=== PATIENT | male | born 1955 | race Caucasian/White ===

== ENCOUNTER → 2019-10-18 | Outpatient (CLI) | payer BC ==
[~2019-10-18] MED LIST: INSU100I13 SQ; INSULIN; LEVO75TA6 PO; LISI10TA2 PO; LVT.05T; OMEP10SU; PANT40TA2 PO; SIMV40TA2 PO; SUCR1TAB36 PO; [UNRECOGNIZED DRUG - REMARK]
--- NOTE | 2019-10-19 11:17 | Diagnostic Imaging Report ---
INDICATION: Abnormal thyroid labs. Patient was administered 203 uCi of I-123 orally and a 4 hour and 24 hour thyroid uptake was performed. In addition, thyroid scan was performed. 4 hour uptake is 4%. 24-hour thyroid uptake is 8.3%. Normal 24-hour uptake is approximately 10-30%. Thyroid scan demonstrates fairly homogeneous uptake of activity throughout both lobes of the thyroid. No hot or cold nodules are identified. IMPRESSION: Slightly low 24 hour thyroid uptake of 8% consistent with hypothyroidism. No other significant abnormality is seen. Dictated by: Dictated on workstation # [id number]
== END ==
LOC: CARD 10:31
PROVIDERS: ATTEND Nurse Practitioner Family
DX: R94.6 Abnormal results of thyroid function studies (principal)
CPT/HCPCS: 78014

== ENCOUNTER → 2021-08-01 | Outpatient (CLI) | payer BC ==
[~2021-08-01] MED LIST changes: -LISI10TA2 PO; +LISI10TA25 PO
--- NOTE | 2021-08-01 17:31 | Diagnostic Imaging Report ---
INDICATION: Pain. 3 views were obtained. FINDINGS: The alignment is normal. No fracture or dislocation. Soft tissues are unremarkable. IMPRESSION: Mild degenerative changes, however no acute fracture or dislocation. Dictated by: Dictated on workstation # [id number]
== END ==
LOC: RAD 16:08
PROVIDERS: ATTEND Physician Assistant
DX: E11.621 Type 2 diabetes mellitus with foot ulcer (principal); L97.519 Non-pressure chronic ulcer of other part of right foot with unspecified severity; M79.674 Pain in right toe(s); B35.1 Tinea unguium; E03.9 Hypothyroidism, unspecified; E78.00 Pure hypercholesterolemia, unspecified; M19.071 Primary osteoarthritis, right ankle and foot; Z86.14 Personal history of Methicillin resistant Staphylococcus aureus infection
CPT/HCPCS: 73630

== ENCOUNTER → 2021-08-06 | Outpatient (CLI) | payer BC | LOC: WOUNDCARE 15:11 | PROVIDERS: ATTEND Surgery | DX: E11.621 Type 2 diabetes mellitus with foot ulcer (principal); E11.42 Type 2 diabetes mellitus with diabetic polyneuropathy; L97.512 Non-pressure chronic ulcer of other part of right foot with fat layer exposed; I70.235 Atherosclerosis of native arteries of right leg with ulceration of other part of foot | CPT/HCPCS: 11042; A6197; G0463 ==

== ENCOUNTER → 2021-08-15 | Outpatient (CLI) | payer BC | LOC: WOUNDCARE 15:12 | PROVIDERS: ATTEND Surgery | DX: E11.621 Type 2 diabetes mellitus with foot ulcer (principal); E11.42 Type 2 diabetes mellitus with diabetic polyneuropathy; E11.52 Type 2 diabetes mellitus with diabetic peripheral angiopathy with gangrene; L97.512 Non-pressure chronic ulcer of other part of right foot with fat layer exposed | CPT/HCPCS: 99212 ==

== ENCOUNTER → 2021-08-22 | Outpatient (CLI) | payer BC | LOC: WOUNDCARE 15:12 | PROVIDERS: ATTEND Family Medicine | DX: E11.621 Type 2 diabetes mellitus with foot ulcer (principal); E11.42 Type 2 diabetes mellitus with diabetic polyneuropathy; L97.512 Non-pressure chronic ulcer of other part of right foot with fat layer exposed; E11.52 Type 2 diabetes mellitus with diabetic peripheral angiopathy with gangrene | CPT/HCPCS: 11042; A6197; G0463 ==

== ENCOUNTER → 2021-08-22 | Outpatient (CLI) | payer BC | LOC: LAB 15:41 | PROVIDERS: ATTEND Family Medicine | DX: E11.621 Type 2 diabetes mellitus with foot ulcer (principal); E11.42 Type 2 diabetes mellitus with diabetic polyneuropathy; L97.512 Non-pressure chronic ulcer of other part of right foot with fat layer exposed | CPT/HCPCS: 36415; 83036 ==

== ENCOUNTER → 2021-08-29 | Outpatient (CLI) | payer BC | LOC: WOUNDCARE 15:10 | PROVIDERS: ATTEND Family Medicine | DX: E11.52 Type 2 diabetes mellitus with diabetic peripheral angiopathy with gangrene (principal); E11.621 Type 2 diabetes mellitus with foot ulcer; E11.42 Type 2 diabetes mellitus with diabetic polyneuropathy; I96 Gangrene, not elsewhere classified; L97.512 Non-pressure chronic ulcer of other part of right foot with fat layer exposed | CPT/HCPCS: 11042; G0463 ==

== ENCOUNTER → 2021-09-05 | Outpatient (CLI) | payer BC | LOC: WOUNDCARE 15:10 | PROVIDERS: ATTEND Family Medicine | DX: E11.621 Type 2 diabetes mellitus with foot ulcer (principal); E11.42 Type 2 diabetes mellitus with diabetic polyneuropathy; L97.512 Non-pressure chronic ulcer of other part of right foot with fat layer exposed; E11.65 Type 2 diabetes mellitus with hyperglycemia; E11.52 Type 2 diabetes mellitus with diabetic peripheral angiopathy with gangrene | CPT/HCPCS: 11042; A6207; G0463 ==

== ENCOUNTER → 2021-09-12 | Outpatient (CLI) | payer BC | LOC: WOUNDCARE 15:10 | PROVIDERS: ATTEND Family Medicine | DX: E11.621 Type 2 diabetes mellitus with foot ulcer (principal); E11.42 Type 2 diabetes mellitus with diabetic polyneuropathy; L97.512 Non-pressure chronic ulcer of other part of right foot with fat layer exposed; E11.65 Type 2 diabetes mellitus with hyperglycemia; E11.52 Type 2 diabetes mellitus with diabetic peripheral angiopathy with gangrene | CPT/HCPCS: 11042; G0463 ==

== ENCOUNTER → 2021-09-19 | Outpatient (CLI) | payer BC | LOC: WOUNDCARE 15:05 | PROVIDERS: ATTEND Family Medicine | DX: E11.621 Type 2 diabetes mellitus with foot ulcer (principal); E11.52 Type 2 diabetes mellitus with diabetic peripheral angiopathy with gangrene; E11.42 Type 2 diabetes mellitus with diabetic polyneuropathy; L97.512 Non-pressure chronic ulcer of other part of right foot with fat layer exposed; E11.65 Type 2 diabetes mellitus with hyperglycemia | CPT/HCPCS: 11042; G0463 ==

== ENCOUNTER → 2021-09-24 | Outpatient (CLI) | payer BC | LOC: WOUNDCARE 15:05 | PROVIDERS: ATTEND Family Medicine | DX: E11.52 Type 2 diabetes mellitus with diabetic peripheral angiopathy with gangrene (principal); E11.621 Type 2 diabetes mellitus with foot ulcer; E11.42 Type 2 diabetes mellitus with diabetic polyneuropathy; E11.65 Type 2 diabetes mellitus with hyperglycemia; I96 Gangrene, not elsewhere classified; L97.512 Non-pressure chronic ulcer of other part of right foot with fat layer exposed | CPT/HCPCS: 11042; G0463 ==

== ENCOUNTER → 2021-10-03 | Outpatient (CLI) | payer BC | LOC: WOUNDCARE 15:12 | PROVIDERS: ATTEND Family Medicine | DX: E11.621 Type 2 diabetes mellitus with foot ulcer (principal); E11.42 Type 2 diabetes mellitus with diabetic polyneuropathy; L97.512 Non-pressure chronic ulcer of other part of right foot with fat layer exposed; E11.65 Type 2 diabetes mellitus with hyperglycemia | CPT/HCPCS: 11042; G0463 ==

== ENCOUNTER → 2021-10-10 | Outpatient (CLI) | payer BC | LOC: WOUNDCARE 15:10 | PROVIDERS: ATTEND Family Medicine | DX: E11.621 Type 2 diabetes mellitus with foot ulcer (principal); E11.42 Type 2 diabetes mellitus with diabetic polyneuropathy; E11.52 Type 2 diabetes mellitus with diabetic peripheral angiopathy with gangrene; L97.512 Non-pressure chronic ulcer of other part of right foot with fat layer exposed; E11.65 Type 2 diabetes mellitus with hyperglycemia | CPT/HCPCS: 11042; G0463 ==

== ENCOUNTER → 2022-06-27 | Outpatient (CLI) | payer BC ==
[2022-06-27 11:53] LABS: BASOPHILS # (AUTO) 0.1 10^3/uL (0.0-0.1); BASOPHILS % (AUTO) 1 % (0-10); EOSINOPHILS # (AUTO) 0.4 10^3/uL (0.0-0.3); EOSINOPHILS % (AUTO) 6 % (0-10); HEMATOCRIT 37 % (40-54); HEMOGLOBIN 12.3 g/dL (13.3-17.7); LYMPHOCYTES # (AUTO) 0.7 10^3/uL (1.0-4.0); LYMPHOCYTES % (AUTO) 11 % (12-44); MEAN CORPUSCULAR HEMOGLOBIN 28 pg (25-34); MEAN CORPUSCULAR HGB CONC 33 g/dL (32-36); MEAN CORPUSCULAR VOLUME 83 fL (80-99); MEAN PLATELET VOLUME 8.9 fL (9.0-12.2); MONOCYTES # (AUTO) 0.7 10^3/uL (0.0-1.0); MONOCYTES % (AUTO) 11 % (0-12); NEUTROPHILS # (AUTO) 4.4 10^3/uL (1.8-7.8); NEUTROPHILS % (AUTO) 71 % (42-75); PLATELET COUNT 315 10^3/uL (130-400); WHITE BLOOD COUNT 6.2 10^3/uL (4.3-11.0)
[2022-06-27 12:14] LABS: ERYTHROCYTE SEDIMENTATION RATE 41 MM/HR (0-30)
[2022-06-27 12:19] LABS: ALBUMIN 3.7 GM/DL (3.2-4.5); BILIRUBIN,TOTAL 0.8 MG/DL (0.1-1.0); CALCIUM 9.4 MG/DL (8.5-10.1); CREATININE SERUM 0.9 MG/DL (0.60-1.30); TOTAL PROTEIN 6.6 GM/DL (6.4-8.2)
== END ==
LOC: WOUNDCARE 09:34
PROVIDERS: ATTEND Family Medicine
DX: L97.512 Non-pressure chronic ulcer of other part of right foot with fat layer exposed (principal); E11.621 Type 2 diabetes mellitus with foot ulcer; E11.649 Type 2 diabetes mellitus with hypoglycemia without coma; E11.40 Type 2 diabetes mellitus with diabetic neuropathy, unspecified; L03.031 Cellulitis of right toe; Z91.19 Patient's noncompliance with other medical treatment and regimen
CPT/HCPCS: 80053; 82947; 85025; 85652; 86141; A6197; G0463; 36415; 99214

== ENCOUNTER → 2022-06-30 | Outpatient (CLI) | payer BC ==
[~2022-06-30] MED LIST changes: +GADOTERATE 0.5 MMOL/ML (CLARISCAN) 15 ML VIAL IV ONE
--- NOTE | 2022-06-30 22:07 | Diagnostic Imaging Report ---
Exam: MRI right foot without and with intravenous contrast. Date: June 30, 2022. Indication: 66-year-old male, concern for osteomyelitis of the right great toe. Great toe pain. Comparison: Right foot radiographs August 01, 2021. Technique: Multiple pre and postcontrast MRI sequences of the right foot were obtained. Findings: There is diffuse loss of normal T1 marrow signal throughout the first distal phalanx as well as marrow edema and enhancement consistent with osteomyelitis. There is a distal skin defect at the level of the first digit consistent with a soft tissue ulcer. There is generalized subcutaneous edema and enhancement of the first digit without identified focal fluid collection or abscess. There is no evidence of osteomyelitis of the first proximal phalanx. There is no first interphalangeal joint effusion to specifically suggest septic arthritis. There is no additional identified site of osteomyelitis. There is a bipartite lateral sesamoid. Impression: 1. Osteomyelitis involving the entire first distal phalanx. 2. No joint effusion of the first interphalangeal joint to specifically suggest septic arthritis. 3. No evidence of osteomyelitis of the first proximal phalanx. 4. Generalized subcutaneous edema and enhancement without identified focal fluid collection or abscess. Dictated by: Dictated on workstation # [id number]
== END ==
LOC: RAD 17:00
PROVIDERS: ATTEND Family Medicine
DX: L97.512 Non-pressure chronic ulcer of other part of right foot with fat layer exposed (principal); E11.621 Type 2 diabetes mellitus with foot ulcer; E11.649 Type 2 diabetes mellitus with hypoglycemia without coma; E11.40 Type 2 diabetes mellitus with diabetic neuropathy, unspecified; L03.031 Cellulitis of right toe; Z91.19 Patient's noncompliance with other medical treatment and regimen; M86.8X7 Other osteomyelitis, ankle and foot
CPT/HCPCS: 73720

== ENCOUNTER 2022-07-10 05:40 | Outpatient (CLI) | payer BC ==
[~2022-07-10] VITALS: Ht 182.9 cm; Wt 75.0 kg
[~2022-07-10 05:40] MED LIST changes: -GADOTERATE 0.5 MMOL/ML (CLARISCAN) 15 ML VIAL IV ONE
[2022-07-10] MEDS ORDERED: PANT40TA52 PO (13:36)
[2022-07-10] MEDS ORDERED: CITA20TA9 PO (13:36)
== END 2022-07-10 15:18 | disposition home or self-care (01) ==
LOC: PREOP 05:40
PROVIDERS: ATTEND Podiatrist Foot & Ankle Surgery
DX: Z01.818 Encounter for other preprocedural examination (principal)

== ENCOUNTER 2022-07-14 05:59 | Day surgery (SDC) | payer BC ==
[2022-07-14] VITALS (11 sets, daily range): BP systolic 121–160; BP diastolic 67–90
[~2022-07-14] VITALS: Ht 182.9 cm; Wt 75.0 kg
[~2022-07-14 05:59] MED LIST changes: +CITA20TA9 PO; +PANT40TA52 PO
[2022-07-14] MEDS: LACTATED RINGERS 1,000 ML IV PRN ×2 (06:21→09:04)
[2022-07-14] MEDS ORDERED: ceFAZolin INJECTION 1,000 MG VIAL IV ONE (06:30)
[2022-07-14] MEDS ORDERED: LIDOCAINE 1% INJ 10 ML VIAL ONE (07:04)
[2022-07-14] MEDS ORDERED: BUPIVACAINE 0.5% 30 ML (SENSORCAINE) VIAL ONE (07:05)
--- NOTE | 2022-07-14 07:49 | Progress Note-Pre Operative ---
Pre-Operative Progress Note Date of Available H&P: Jul 14, 2022 Date H&P Reviewed: Jul 14, 2022 Time H&P Reviewed: 07:40 Pre-Operative Diagnosis: Osteomyelitis, right hallux MADISON NOLASCO DPQueta Jul 14, 2022 07:49
[2022-07-14] MEDS ORDERED: MIDAZOLAM 2 MG/2 ML (VERSED) VIAL ONE (07:57)
[2022-07-14] MEDS ORDERED: LIDOCAINE 1% INJ 10 ML VIAL INJ ONE (08:18)
[2022-07-14] MEDS ORDERED: BUPIVACAINE 0.5% 30 ML (SENSORCAINE) VIAL INJ ONE (08:22)
[2022-07-14] MEDS ORDERED: SEVOFLURANE (ULTANE) 15 ML INHAL SOLN ONE (08:42)
[2022-07-14] MEDS ORDERED: ONDANSETRON 4 MG/2 ML (SDV) Z0FRAN ONE (08:42)
[2022-07-14] MEDS ORDERED: PROPOFOL INJECTION 50 ML IV ONE (08:42)
--- NOTE | 2022-07-14 08:55 | Anesthesia-General Post-Op ---
General Patient Condition Mental Status/LOC: Same as Preop Cardiovascular: Satisfactory Nausea/Vomiting: Absent Respiratory: Satisfactory Pain: Controlled Complications: Absent Post Op Complications Complications None Follow Up Care/Instructions Patient Instructions None needed. Anesthesia/Patient Condition Patient Condition Patient is doing well, no complaints, stable vital signs, no apparent adverse anesthesia problems. No complications reported per nursing. SUJATA LUNA CRNA Jul 14, 2022 08:55
--- NOTE | 2022-07-14 08:56 | Progress Note-Post Operative ---
Post-Operative Progess Note Surgeon (s)/Car Worker (s) Surgeon MADISON NOLASCO DPM Car Worker: none Pre-Operative Diagnosis Osteomyelitis, right hallux Post-Operative Diagnosis Same Procedure & Operative Findings Date of Procedure 07/14/22 Procedure Performed/Findings Amputation of the right hallux distal phalanx and a portion of the proximal phalanx Anesthesia Type General Estimated Blood Loss Estimated blood loss (mL): Minimal Specimens/Packing Specimens Removed Right hallux distal phalanx and the head of the proximal phalanx MADISON NOLASCO DPM Jul 14, 2022 08:56
[2022-07-14] MEDS ORDERED: ACHD5005 PO (08:58)
[2022-07-14] MEDS ORDERED: CEPH500C PO (08:58)
[2022-07-14] MEDS ORDERED: HYDROcodone/APAP 5 MG/325 MG (LORTAB) TAB PO PRN (09:00)
[2022-07-14] MEDS ORDERED: ONDANSETRON 4 MG/2 ML (SDV) Z0FRAN IVP PRN (09:00)
[2022-07-14] MEDS ORDERED: fentaNYL INJ 100 MCG/2 ML AMP IVP ONE (09:00)
[2022-07-14] MEDS ORDERED: LACTATED RINGERS 1,000 ML IV SCH (09:00)
--- NOTE | 2022-07-14 10:34 | Physical Therapy Ortho Eval ---
PT Orthopedic Evaluation Type of Surgery Right great toe amputation secondary to bone infection. Prior Level of Function Current Living Status: Alone Locomotion (Upon Admit): Independent Established Durable Medical Eq: Front Wheeled Walker Pt's mother has a FWW that he can use until he is recovered. Subjective Subjective Pt reports no mobility issues. He has no pain in the foot due to neuropathy. Entry Into Home: Stairs With Railing Steps Into Home: 3 Steps Accessories: Railing Present Motor Control Motor Control: Motor Control WNL ROM ROM: WFL Strength Strength: WFL Transfer SCALE: Activities may be completed with or without assistive devices. 1-Kcxxexlcmo-uxtfbec completes the activity by him/herself with no assistance from a helper. 5-Set-up or Clean-up Assistance-helper sets up or cleans up; patient completes activity. [place] assists only prior to or following the activity. 4-Supervision or Touching Assistance-helper provides verbal cues and/or touching/steadying and/or contact guard assistance as patient completes activity. Assistance may be provided throughout the activity or intermittently. 3-Partial/Moderate Assistance-helper does LESS THAN HALF the effort. [place] lifts, holds or supports trunk or limbs, but provides less than half the effort. 2-Substantial/Maximal Assistance-helper does MORE THAN HALF the effort. [place] lifts or holds trunk or limbs and provides more than half the effort. 2-Ykswoctru-kbkfxg does ALL the effort. Patient does none of the effort to complete the activity. Or, the assistance of 2 or more helpers is required for the patient to complete the activity. If activity was not attempted, code reason: 7-Patient Refused. 9-Not Applicable-not attempted and the patient did not perform the activity before the current illness, exacerbation or injury. 10-Not Attempted due to Environmental Limitations-(lack of equipment, weather restraints, etc.). 88-Not Attempted due to Medical Conditions or Safety Concerns. Transfers (B, C, W/C) (QC): 6 Pt able to get in/out of bed independently. Sit to stand without assist. Gait Gait Assistive Device: FWW Ambulate 150ft with FWW, verbal cues for training on use. Right Lower Extremity: Right Weight Bearing Status RLE: Partial Weight Bearing Left Lower Extremity: Left Weight Bearing Status LLE: Full Weight Bearing Distance (QC): 3=150 ft Distance: 150 Gait Level of Assist: 6 Summary/Comments Pt ambulated with no assistance. He was steady with (L) and (R) turns. He required occasional reminders to be partial wt bearing on the right foot. Treatment Rendered Instructed on home exercise of ankle pumps for mobility and reduced risk of DVT post surgery. Assessment/Goals Goal Time Frame: 1 Visit Understands HEP: Yes Safe Ambulation: Yes Plan Treatment Plan: Discharge Treatment Duration: 1 Visits Per Week: 1 PT/Family Agrees to Plan: Yes Time Time In: 1015 Time Out: 1035 Total Billed Treatment Time: 20 Billed Treatment Time visit, tono low complexity 20min No ASHWIN GRIFFIN PT Jul 14, 2022 10:34
--- NOTE | 2022-07-14 12:02 | OPERATIVE REPORT ---
DATE OF SERVICE: 07/14/2022 SURGEON: Charlene Nolasco DPM. PREOPERATIVE DIAGNOSIS: Osteomyelitis, right hallux. POSTOPERATIVE DIAGNOSIS: Osteomyelitis, right hallux. PROCEDURE: Partial amputation of the right hallux including distal phalanx and head of the proximal phalanx. WOUND CLASS: Contaminated. ANESTHESIA: General. HEMOSTASIS: Pneumatic ankle tourniquet at 250 mmHg. INDICATIONS: This 66-year-old male presents complaining of a chronic wound to the right hallux. Conservative therapy is met with unsatisfactory results and the patient is agreeable to surgical intervention after risks and complications were discussed at length. No guarantees were extended to the patient and he is willing to proceed. DESCRIPTION OF PROCEDURE: The patient was brought back to the operating table, placed in secure supine position. The patient had an appropriate timeout, after which local anesthetic was then introduced to the right foot in a Berrios block utilizing 20 mL of 1:1 mixture of 1% Xylocaine, 0.5% Marcaine. Because the patient continued to move throughout the procedure and prep time, a general anesthetic was then induced in the middle of the procedure. The right foot was prepped and draped in normal sterile manner. The right foot was then elevated, allowed to exsanguinate after which the tourniquet was inflated to 250 mmHg. Attention was then directed to the right hallux where a racquet-type incision was created with the handle or tail of the racquet medial to the proximal phalanx extending distally and then superiorly along the interphalangeal joint area of the hallux. A long plantar flap was also created as far as the incision is concerned to facilitate potential closure. A sharp dissection was carried out disarticulating the distal phalanx from the proximal phalanx at the interphalangeal joint. The distal interphalangeal joint was sent for gross and microscopic evaluation after a sample of the bone underlying the chronic wound area was taken to have cultures and sensitivities performed. Below the interphalangeal joint was an accessory ossicle associated with the flexor hallucis longus tendon. It had a dark brower discoloration and was very soft, consistent with osteomyelitis. Because of the proximity of this to the head of the proximal phalanx, the head of the proximal phalanx was also taken with a power sagittal saw to confirm a buffer area of clean bone. The rest of the soft tissue and bone appeared to be within normal limits grossly. A 1000 mL of normal saline was utilized for power irrigation. After irrigation, the wound was swabbed to confirm aseptic closure. Skin was approximated utilizing simple interrupted type stitch with a 4-0 Prolene. Excellent skin approximation was appreciated without any significant skin tension. The tourniquet was released noting appropriate cap refill time, especially to the dorsal aspect of the right hallux. The plantar aspect, it did take a little bit longer for the capillary refill time to return to its normal three seconds or less capillary refill time. Postoperative dressing consisted of Betadine soaked Adaptic, sterile 4 x 4, sterile Kerlix all secured with a Coban wrap. The patient tolerated the anesthesia and procedure well, was transported from the operating room to the recovery room with vital signs stable. He was given a prescription for Keflex as well as hydrocodone postoperatively. He is to be partial weightbearing with minimal weightbearing to the right forefoot. We will see him back in the office in 10 days' period of time or sooner if necessary. Job ID: [id number] DocumentID: [id number] Dictated Date: 07/14/2022 09:06:34 Day Guard Date: 07/14/2022 12:02:12 Dictated By: CHARLENE NOLASCO DPM
--- NOTE | 2022-07-14 17:10 | Diagnostic Imaging Report ---
CLINICAL HISTORY: Postop. Follow-up. COMPARISON: 08/01/2021. TECHNIQUE: 2 views of the right foot. FINDINGS: Interval amputation of the right great toe is seen at the distal aspect of the right proximal 1st phalanx. No acute fracture is identified. Edema and subcutaneous emphysema is seen at the surgical site. IMPRESSION: 1. Interval amputation of the right great toe at the distal aspect of the right proximal 1st phalanx. 2. No acute fracture or dislocation of the right foot. Dictated by: Dictated on workstation # [id number]
== END 2022-07-14 10:40 | disposition home or self-care (01) ==
LOC: SDC 05:59
PROVIDERS: ATTEND Podiatrist Foot & Ankle Surgery
DX: E11.621 Type 2 diabetes mellitus with foot ulcer (principal); M86.171 Other acute osteomyelitis, right ankle and foot; L97.519 Non-pressure chronic ulcer of other part of right foot with unspecified severity; Z79.4 Long term (current) use of insulin; Z79.899 Other long term (current) drug therapy; E11.42 Type 2 diabetes mellitus with diabetic polyneuropathy
CPT/HCPCS: 73620; 87070; 87075; 87077; 87081; 87101; 87205